=== PATIENT | female | born 1975 | race Caucasian/White ===

== ENCOUNTER 2016-10-07 15:02 | Emergency (ER) | payer OTHER ==
--- NOTE | ~2016-10-07 | CT2 ---
[facility] A Service of [facility] & [facility] RADIOLOGY TEXT RESULTS PATIENT: REE FRANKLIN LOCATION: [facility] : 79 UNIT #: [id number] AGE: [address]: Ge Reyes DO SEX: F ORDER DR: [id number] [facility] [address] [place], [place] [address] [id number] MR#: [id number] Acc #: [id number] NAME: REE FRANKLIN : 1975 SEX: F STUDY DATE/TIME: 10/07/2016 17:21 UNIT: [facility] ROOM: STUDY DESCRIPTION: CT Abd and Pelv W Cont Attending Physician: Ge Reyes D.O. Ordering Physician: Ge Reyes D.O. Primary Care Physician: No Primary Care Physician MEDICAL IMAGING REPORT This report is preliminary unless electronic signature is present EXAM CT abdomen and pelvis, 11/06/16. HISTORY Abdomen pain, diarrhea, gastric sleeve 08/03/16. Prior history of appendectomy, tonsillectomy, thyroidectomy. TECHNIQUE CT abdomen and pelvis performed with intravenous administration 100 mL Isovue-370. Enteric contrast not administered. Study limited in absence of enteric contrast. This CT exam was performed with one or more of the following radiation dose reduction techniques: automatic exposure control, adjustment of mA and/or kV according to patient size, and iterative reconstruction. COMPARISON No comparisons. FINDINGS Lung bases show a 3 mm noncalcified nodule left lung base posterolaterally. No acute or suspicious findings in the lung bases. Inferior heart and pericardium unremarkable. Liver shows focal fatty infiltration segment 4B adjacent to the falciform ligament. No suspicious hepatic finding. Gallbladder, spleen, small accessory spleen, pancreas, adrenal glands unremarkable. 1 cm cyst left mid kidney. No acute-appearing renal findings. CT PELVIS: No inguinal adenopathy. Urinary bladder unremarkable. Status post hysterectomy. No suspicious adnexal structures. No fluid collections in the pelvis. No pelvic or retroperitoneal adenopathy. Small hiatal hernia. Status post gastric sleeve procedure. No inflammatory change or fluid collection along the operative bed. The small bowel is unremarkable. The appendix is surgically absent. STS. [facility] A Service of [facility] & [facility] RADIOLOGY TEXT RESULTS PATIENT: REE FRANKLIN LOCATION: [facility] : 79 UNIT #: [id number] AGE: [address]: Ge Reyes DO SEX: F ORDER DR: Ascending colon shows some mild fatty infiltration in its wall. Nonspecific finding. This could be related to the patient's overall obesity or remote episodes of colonic inflammation. There is no acute appearing colonic abnormality. There is a linear/band-like area of subcutaneous fat stranding in the midline anterior abdominal wall with a small metallic density immediately superficial to the linea alba. I would favor that this is postoperative in nature, and related to the patient's gastric surgery. Correlate with any indication of superficial inflammation. No subcutaneous air or fluid collection. The vascular structures are unremarkable. Bony structures unremarkable. IMPRESSION 1. Patient is status post recent gastric sleeve procedure. There is no acute-appearing abnormality along the gastric sleeve operative bed. No fluid collection or free air. No inflammatory change. There is a small hiatal hernia which includes a portion of the post gastric sleeve stomach. 2. Status post hysterectomy and appendectomy. 3. Fatty infiltration in the ascending colon. Nonspecific finding. This may be related to the patient's overall obesity or a reflection of remote colonic inflammation. It is not felt to be acute in time course. No acute-appearing colonic abnormality. 4. In the midline superior/anterior abdominal wall, there is a linear/band-like area of subcutaneous fat stranding with a small metallic density at its inferior aspect just superficial to the linea alba, and favored to reflect postoperative change related to the patient's gastric procedure. Correlate with any clinical signs of superficial inflammation. There is no drainable fluid collection or subcutaneous air at this location. 5. 3 mm noncalcified nodule left lung base. In absence of risk factors for pulmonary malignancy, no further imaging would be required. If the patient does have risk factors for pulmonary malignancy, 12-month CT follow up could be considered. Dictated by... Kailash Rivera M.D. THIS IS AN ELECTRONICALLY VERIFIED REPORT Kailash Rivera M.D. at 10/13/2016 10:15 AM JAYANT/fatemeh TD: 10/07/2016 19:26 JOB #: [id number] MEDICAL IMAGING REPORT Page 1 of 1 COPY
[2016-10-07 16:19] LABS: BASOPHIL# 0.1 X10e3 (0-0.3); BASOPHIL% 0.8 % (0-2.5); EOSINOPHIL% 0.4 % (0.0-7.0); HEMATOCRIT 36.9 % (35.0-45.0); HEMOGLOBIN 11.1 gm/dL (12.0-16.0); LYMPHOCYTE# 2.1 X10e3 (1.0-3.5); LYMPHOCYTE% 28.3 % (17.0-45.0); MEAN CELL VOLUME 67.9 FL (83-96); MEAN CORPUSCULAR HEMOGLOBIN 20.4 PG (28-34); MEAN CORPUSCULAR HGB CONC 30.1 g/dL (30-36); MONOCYTE# 0.6 X10e3 (0-1.0); MONOCYTE% 8.6 % (3.0-12.0); NEUTROPHIL# 4.7 X10e3 (1.5-7.1); NEUTROPHIL% 61.9 % (40-75); PLATELET COUNT 286 X10e3 (140-420); RED BLOOD COUNT 5.44 X10e (3.90-5.30); RED CELL DISTRIBUTION WIDTH 19.4 % (11.0-15.5); WHITE BLOOD COUNT 7.6 X10e3 (4.0-10.5)
[2016-10-07 16:20] LABS: DIFF IND NO
[2016-10-07 16:23] LABS: ALBUMIN SERUM 3.4 g/dL (3.5-5.0); BILIRUBIN, DIRECT 0.1 mg/dL (0.0-0.2); BILIRUBIN,INDIRECT 0.5 mg/dL (0.0-0.9); BILIRUBIN,TOTAL 0.6 mg/dL (0.2-2.0); BUN/CREATININE RATIO 12.85; CALCIUM SERUM 8.9 mg/dL (8.4-10.2); CREATININE SERUM 0.7 mg/dL (0.6-1.4); GLOM FILT RATE Estimated 109.1 mL/min (>60); PROTEIN TOTAL SERUM 6.5 g/dL (6.0-8.3)
[2016-10-07 16:26] LABS: POTASSIUM 2.9 mmol/L (3.5-5.1)
[2016-10-07 16:50] LABS: URINE SOURCE CLEAN CATCH
[2016-10-07 16:56] LABS: URINE APPEARANCE CLOUDY; URINE BILIRUBIN NEG (NEG); URINE BLOOD NEG (NEG); URINE COLOR DK YELLOW; URINE GLUCOSE NEG (NEG); URINE KETONE 3+ (NEG); URINE LEUKOCYTE ESTERASE NEG (NEG); URINE NITRATE NEG (NEG); URINE PROTEIN 1+ (NEG); URINE SPECIFIC GRAVITY 1.027 (1.003-1.035)
[2016-10-07 16:58] LABS: CULTURE INDICATED? YES; URBCS1 AUWI 0-2 /[HPF] (0-2); URINE BACTERIA AUWI 1+ (NEGATIVE); URINE SQUAMOUS EPITHELIAL CELL MOD /[HPF]
[2016-10-07 17:32] LABS: URINE MUCUS PRESENT
== END 2016-10-07 19:04 | disposition home or self-care (01) ==
LOC: CED 15:02
PROVIDERS: Emergency Medicine
DX: E87.6 Hypokalemia (principal); R91.1 Solitary pulmonary nodule; Z98.890 Other specified postprocedural states; F17.200 Nicotine dependence, unspecified, uncomplicated; Z90.49 Acquired absence of other specified parts of digestive tract
CPT/HCPCS: 36415; 74177; 80048; 80076; 81003; 83690; 83735; 85025; 87086; 96361; 96365; 96372; 96375; 99284; J0500; J2405; Q9967